=== PATIENT | female | born 1965 | race African-American/Black ===

== ENCOUNTER 2019-05-21 09:12 | Outpatient (CLI) | payer OTHER, SELFPAY ==
--- NOTE | ~2019-05-21 | CT_ITS ---
EXAMINATION: CT chest w con DATE: 05/21/2019 10:39 INDICATION: Follow-up lung cancer TECHNIQUE: Computed tomography (CT) of the chest was performed with 75 cc Omnipaque 350 intravenous c ontrast. The dose-length product was 420.15 mGy-cm. Automated exposure control and iterative reconstr uction technique were employed. COMPARISON: CT dated 02/17/2019 FINDINGS: Heart size normal. Mild atherosclerosis of the aorta without evidence for aneurysm or disse ction. Stable right hilar lymphadenopathy. 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 No new pul monary nodules or masses. No significant pleural or pericardial effusion. Stable cyst left hepatic lo be. Stable mixed lytic/sclerotic permeative lesion right first rib. No new lytic or blastic lesions a re identified. IMPRESSION: 1. 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 No significant interval change. Reviewed, dictated and finalized at location A. IMPRESSION: 1. 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 No significan t interval change.
== END 2019-05-21 09:13 | disposition home or self-care (01) ==
PROVIDERS: PCP Internal Medicine; Visit Provider Internal Medicine
DX: C34.80 Malignant neoplasm of overlapping sites of unspecified bronchus and lung (principal); K13.79 Other lesions of oral mucosa; K12.30 Oral mucositis (ulcerative), unspecified
CPT/HCPCS: 71260; Q9967

== ENCOUNTER 2020-01-21 11:07 | Outpatient (CLI) | payer OTHER, SELFPAY ==
--- NOTE | ~2020-01-21 | MMUS_ITS ---
EXAMINATION: MM diagnostic pat BI w ruthann, US breast LT limited HISTORY: Probable left breast abnormality. TECHNIQUE: Additional 3-D tomosynthesis images of the left breast were performed and synthetic 2-D im ages were generated. CAD analysis was submitted and interpreted. High resolution Limited left breast ultrasound was performed. COMPARISON: Comparison to multiple prior studies sequentially, with oldest reviewed study dated 05/04. BREAST PARENCHYMAL COMPOSITION: Breast composed of scattered areas of fibroglandular density. FINDINGS: MAMMOGRAPHIC FINDINGS: Breast composed of scattered areas of fibroglandular density. The right breast is stable without evid ence for malignancy. There is focal asymmetry medial aspect of the left breast on CC view, partially visualized. The abnormality is posterior and not visualized on MLO or mediolateral views. ULTRASOUND: Limited left breast ultrasound: In the area of palpable concern medial aspect of the left breast/tom vage area there is slightly irregular shaped hypoechoic mass with enhanced through transmission measu ring 7 x 7 x 6 mm. IMPRESSION: 1. Irregular shaped hypoechoic mass medial aspect of the left breast in the area of palpable abnormal ity measuring 7 mm maximum dimension. 2. Ultrasound-guided left breast biopsy recommended. BI-RADS category 4, suspicious findings. Reviewed, dictated and finalized at location A. [employer] IMPRESSION: 1. Irregular shaped hypoechoic mass medial aspect of the left breast in the are a of palpable abnormality measuring 7 mm maximum dimension. 2. Ultrasound-guided left breast biopsy recommended. BI-RADS category 4, suspicious findings.
== END 2020-01-21 11:08 | disposition home or self-care (01) ==
PROVIDERS: Visit Provider Obstetrics & Gynecology
DX: N63.24 Unspecified lump in the left breast, lower inner quadrant (principal); R92.8 Other abnormal and inconclusive findings on diagnostic imaging of breast
CPT/HCPCS: 76642; 77062; 77066; G0279

== ENCOUNTER 2020-06-13 12:27 | Outpatient (CLI) | payer OTHER, SELFPAY ==
--- NOTE | ~2020-06-13 | XR_ITS ---
EXAMINATION: XR knee LT 3V DATE: 06/13/2020 12:59 INDICATION: Lateral sided left knee pain and swelling TECHNIQUE: AP, lateral and sunrise views of the left knee were obtained COMPARISON: None. FINDINGS: Alignment is normal. No fracture. Joint spaces appear normal with tiny marginal osteophytes in all 3 compartments. Large left knee joint effusion without layering lipohemarthrosis. Tiny loose body proj ecting over the intercondylar eminence on the frontal projection. Soft tissues are otherwise unremark able. IMPRESSION: 1. Nonspecific large left knee joint effusion. No acute osseous abnormality. Reviewed, dictated and finalized at location A.
== END 2020-06-13 12:28 | disposition home or self-care (01) ==
DX: M25.562 Pain in left knee (principal)
CPT/HCPCS: 73562

== ENCOUNTER 2022-01-10 14:07 | Outpatient (CLI) | payer OTHER, SELFPAY ==
--- NOTE | ~2022-01-10 | MM_ITS ---
EXAMINATION: MM screening [facility] BI w ruthann HISTORY: Screening mammogram TECHNIQUE: Craniocaudal and mediolateral oblique 3-D tomosynthesis images were obtained and synthetic 2-D images were generated. CAD analysis was submitted and interpreted. COMPARISON: 01/21/2020, 11/26/2018, 11/06/2018 BREAST PARENCHYMAL COMPOSITION: There are scattered areas of fibroglandular density. FINDINGS: No suspicious mass, calcification, or architectural distortion are identified in either trever ast to suggest malignancy. There has been no suspicious interval change. IMPRESSION: 1. No mammographic evidence of malignancy. 2. Recommend routine screening mammography in one year. BI-RADS Category 1: Negative Reviewed, dictated and finalized at location A. 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
== END 2022-01-10 14:08 | disposition home or self-care (01) ==
PROVIDERS: PCP Family Medicine; Visit Provider Pediatrics
DX: Z12.31 Encounter for screening mammogram for malignant neoplasm of breast (principal)
CPT/HCPCS: 77063; 77067

== ENCOUNTER 2022-04-16 21:39 | Emergency (ER) | payer OTHER, SELFPAY ==
[2022-04-16 21:50] VITALS: BP 141/86; PULSE 103; RESP 16; TEMP 36.4; O2SAT 97
[2022-04-17 01:24] VITALS: BP 115/78; PULSE 88; RESP 18; O2SAT 98
[2022-04-17] MEDS: ACETAMINOPHEN 500 MG TABLET 1000 MG PO (02:56)
[2022-04-17] MEDS: methocarbamoL 750 MG TABLET 1500 MG PO (02:57)
[2022-04-17] MEDS: IBUPROFEN 400 MG TABLET 800 MG PO (02:57)
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
[2022-04-17 03:53] VITALS: BP 136/78; PULSE 71; RESP 16; O2SAT 99
== END 2022-04-17 03:53 | disposition home or self-care (01) ==
PROVIDERS: Emergency Provider Emergency Medicine; PCP Family Medicine
DX: S29.012A Strain of muscle and tendon of back wall of thorax, initial encounter (principal); V49.40XA Driver injured in collision with unspecified motor vehicles in traffic accident, initial encounter
CPT/HCPCS: 99283; A9270